=== PATIENT | female | born 1975 | race African-American/Black ===

== ENCOUNTER → 2018-04-19 | Outpatient (CLI) | payer OTHER ==
--- NOTE | 2018-04-19 17:14 | KCIC ---
History: Pain for 2 weeks. Swelling for one week. Comparison: None. Findings: AP, lateral, and oblique views of left ankle. No acute fracture or dislocation is identified. Lateral ankle soft tissue swelling is seen. Small Achilles tendon insertional and minimal plantar calcaneal enthesophytes are seen. AP, lateral, and oblique views of the left foot. No acute fracture or dislocation is identified. Moderate 1st MTP degeneration is present. Impression: 1. No acute osseous abnormality identified in the left ankle or left foot. 2. Lateral ankle soft tissue swelling. 3. 1st MTP degeneration. Electronically signed by: Nigel Acuna MD (04/19/2018 5:11 PM) [place] [id number]
== END | disposition home or self-care (01) ==
LOC: KCIC 14:37
PROVIDERS: ATTEND Internal Medicine
DX: M19.072 Primary osteoarthritis, left ankle and foot (principal); R22.42 Localized swelling, mass and lump, left lower limb
CPT/HCPCS: 73610; 73630

== ENCOUNTER → 2018-05-07 | Outpatient (CLI) | payer OTHER ==
--- NOTE | 2018-05-07 16:59 | RAD ---
Left leg venous Doppler study: Clinical indications: Left ankle swelling and pain. Findings: Duplex sonography (including murrell scale evaluation and color flow and waveform spectral analysis) of the proximal aspect of the greater saphenous vein and the proximal aspect of the profunda femoral vein and the entire length of the common femoral and superficial femoral and popliteal veins and the tibioperoneal trunk and the proximal aspect of the posterior tibial and peroneal veins of the left leg was performed. Normal compressibility, augmentation of color Doppler flow after calf compression, and respiratory variation of Doppler flow is seen. Thus, there are no sonographic findings of deep venous thrombosis within these veins. Impression: There are no sonographic findings of deep venous thrombosis within the veins discussed above of the left lower extremity. Electronically signed by: Carlos Alfred MD (05/07/2018 4:55 PM) [id number]
== END | disposition home or self-care (01) ==
LOC: US 14:01
PROVIDERS: ATTEND Internal Medicine
DX: R22.42 Localized swelling, mass and lump, left lower limb (principal); M79.605 Pain in left leg
CPT/HCPCS: 93971

== ENCOUNTER 2018-07-03 08:26 | Day surgery (SDC) | payer OTHER ==
[~2018-07-03] VITALS: Ht 182.9 cm; Wt 133.4 kg
[~2018-07-03 08:26] MED LIST: HYDROmorphone 2 MG/ML VIAL IV PRN; IV RINGERS,LACTATED 1000ML 1,000 ML IV SCH; LIDOCAINE 1% PF 2 ML VIAL. ID PRN; MORPHINE SULFATE 2 MG/ML VIAL. IV PRN; ONDANSETRON PF 4 MG/2 ML VIAL. IV PRN; PROCHLORPERAZINE 10 MG/2 ML VIAL. IV PRN; fentaNYL PF VIAL 100 MCG/2 ML VIAL IV PRN
[2018-07-03] MEDS ORDERED: PROPOFOL 20 ML IV ONE (08:40)
[2018-07-03] MEDS ORDERED: DEXAMETHASONE SOD PHOS 20 MG/5 ML VIAL. ONE (08:40)
[2018-07-03] MEDS ORDERED: LIDOCAINE 2% PF 5 ML VIAL. ONE (08:40)
[2018-07-03] MEDS ORDERED: FAMOTIDINE 20 MG/2 ML VIAL ONE (08:40)
[2018-07-03] MEDS ORDERED: ONDANSETRON PF 4 MG/2 ML VIAL. ONE (08:40)
[2018-07-03] MEDS ORDERED: fentaNYL PF VIAL 100 MCG/2 ML VIAL ONE ×2 (08:41→10:21)
[2018-07-03] MEDS ORDERED: ROCURONIUM 50 MG/5 ML VIAL. ONE (08:41)
[2018-07-03] MEDS ORDERED: MIDAZOLAM HCL/PF 2 MG/2 ML VIAL. ONE (08:41)
[2018-07-03 08:45] LABS: U PREG PATIENT NEGATIVE (NEG)
[2018-07-03] MEDS ORDERED: AMLO5TAB10 PO (08:45)
[2018-07-03] MEDS ORDERED: FERR325T14 PO (08:45)
[2018-07-03] MEDS ORDERED: TYLENOL ARTHRITIS (08:46)
[2018-07-03] MEDS ORDERED: LABE100T5 PO (08:46)
[2018-07-03 09:08] LABS: BASO % 1 % (0-3); EOS # 0.1 x10^3/uL (0.0-0.7); EOS % 2 % (0-3); HEMATOCRIT 33.6 % (36.0-47.0); LYMPH # 1.5 x10^3/uL (1.0-4.8); LYMPH % 23 % (24-48); MEAN CORPUSCULAR HEMOGLOBIN 26 pg (25-35); MEAN CORPUSCULAR HGB CONC 33 g/dL (31-37); MEAN CORPUSCULAR VOLUME 79 fL (79-100); MONO # 0.3 x10^3/uL (0.0-1.1); MONO % 5 % (0-9); NEUT # 4.4 x10^3uL (1.8-7.7); NEUT % 70 % (31-73); PLATELET COUNT 294 x10^3/uL (140-400); RED BLOOD COUNT 4.27 x10^6/uL (3.50-5.40); RED CELL DISTRIBUTION WIDTH 15.2 % (11.5-14.5); WHITE BLOOD COUNT 6.3 x10^3/uL (4.0-11.0)
[2018-07-03] MEDS ORDERED: miSOPROStol 200 MCG TABLET ONE (09:45)
[2018-07-03] MEDS ORDERED: OXYTOCIN 10 UNIT/ML VIAL. ONE (09:45)
--- NOTE | 2018-07-03 10:03 | PDOC ---
GENERAL General: 43 yrs old lady with history of Excessive uterine bleeding and Pelvic pain.Pt scheduled for D&C , Diagnostic Laparoscopy VITAL SIGNS Vital Signs: Vital Signs Date Time Temp Pulse Resp B/P (MAP) Pulse Ox O2 Delivery O2 Flow Rate FiO2 07/03/18 09:02 97.1 79 18 144/91 99 Room Air 97.1 ALLERGIES Allergies: Allergies Coded Allergies Type Severity Reaction Last Updated Verified No Known Drug Allergies 07/01/18 No MEDS Medications: Current Medications Medications (Trade) Dose Ordered Sig/Andrew Start Time Stop Time Status Last Admin Dose Admin Cefazolin Sodium/ Dextrose 50 ml @ 100 mls/hr 1X PREOP PRN 07/03/18 06:00 07/03/18 18:00 Dexamethasone Sodium Phosphate (Decadron) 20 mg STK-MED ONCE 07/03/18 08:40 07/03/18 08:42 DC Famotidine (Pepcid Vial) 20 mg STK-MED ONCE 07/03/18 08:40 07/03/18 08:42 DC Fentanyl Citrate (Fentanyl 2ml Vial) 100 mcg STK-MED ONCE 07/03/18 08:41 07/03/18 08:44 DC Hydromorphone HCl (Dilaudid) 0.5 mg PRN Q10MIN PRN 07/03/18 07:00 07/04/18 06:59 Lidocaine HCl (Lidocaine Pf 2% Vial) 5 ml STK-MED ONCE 07/03/18 08:40 07/03/18 08:42 DC Lidocaine HCl (Xylocaine-Mpf 1% 2ml Vial) 2 ml PRN 1X PRN 07/03/18 07:00 07/04/18 06:59 Midazolam HCl (Versed) 2 mg STK-MED ONCE 07/03/18 08:41 07/03/18 08:43 DC Misoprostol (Cytotec 200mcg Tab) 200 mcg STK-MED ONCE 07/03/18 09:45 07/03/18 09:47 DC Morphine Sulfate (Morphine Sulfate) 1 mg PRN Q10MIN PRN 07/03/18 07:00 07/04/18 06:59 Ondansetron HCl (Zofran) 4 mg STK-MED ONCE 07/03/18 08:40 07/03/18 08:42 DC Oxytocin (Pitocin) 10 unit STK-MED ONCE 07/03/18 09:45 07/03/18 09:47 DC Prochlorperazine Edisylate (Compazine) 5 mg PACU PRN PRN 07/03/18 07:00 07/04/18 06:59 Propofol 20 ml @ As Directed STK-MED ONCE 07/03/18 08:40 07/03/18 08:42 DC Ringer's Solution 1,000 ml @ 30 mls/hr Q24H 07/03/18 07:00 07/03/18 18:59 07/03/18 09:02 30 MLS/HR Rocuronium [place] (Zemuron) 50 mg STK-MED ONCE 07/03/18 08:41 07/03/18 08:42 DC LAB Lab: Laboratory Tests Test 07/03/18 08:35 07/03/18 08:55 Urine Test Negative (NEG) White Blood Count 6.3 x10^3/uL (4.0-11.0) Red Blood Count 4.27 x10^6/uL (3.50-5.40) Hemoglobin 11.0 g/dL (12.0-15.5) Hematocrit 33.6 % (36.0-47.0) Mean Corpuscular Volume 79 fL (79-100) Mean Corpuscular Hemoglobin 26 pg (25-35) Mean Corpuscular Hemoglobin Concent 33 g/dL (31-37) Red Cell Distribution Width 15.2 % (11.5-14.5) Platelet Count 294 x10^3/uL (140-400) Neutrophils (%) (Auto) 70 % (31-73) Lymphocytes (%) (Auto) 23 % (24-48) Monocytes (%) (Auto) 5 % (0-9) Eosinophils (%) (Auto) 2 % (0-3) Basophils (%) (Auto) 1 % (0-3) Neutrophils # (Auto) 4.4 x10^3uL (1.8-7.7) Lymphocytes # (Auto) 1.5 x10^3/uL (1.0-4.8) Monocytes # (Auto) 0.3 x10^3/uL (0.0-1.1) Eosinophils # (Auto) 0.1 x10^3/uL (0.0-0.7) Basophils # (Auto) 0.0 x10^3/uL (0.0-0.2) ASSESSMENT & PLAN A&P Under GA D&C Diagnostic Laparoscopy done. JULIA SHAH MD Jul 03, 2018 10:03
[2018-07-03] MEDS ORDERED: SEVOFLURANE 61 TO 120 MINUTES. IH ONE (10:26)
[2018-07-03] MEDS ORDERED: GLYCOPYRROLATE 1 MG/5 ML VIAL. ONE (10:29)
--- NOTE | 2018-07-03 11:08 | PDOC ---
VITAL SIGNS Vital Signs: Vital Signs Date Time Temp Pulse Resp B/P (MAP) Pulse Ox O2 Delivery O2 Flow Rate FiO2 07/03/18 09:02 97.1 79 18 144/91 99 Room Air 97.1 ALLERGIES Allergies: Allergies Coded Allergies Type Severity Reaction Last Updated Verified No Known Drug Allergies 07/01/18 No MEDS Medications: Current Medications Medications (Trade) Dose Ordered Sig/Andrew Start Time Stop Time Status Last Admin Dose Admin Cefazolin Sodium/ Dextrose 50 ml @ 100 mls/hr 1X PREOP PRN 07/03/18 06:00 07/03/18 18:00 07/03/18 10:05 100 MLS/HR Dexamethasone Sodium Phosphate (Decadron) 20 mg STK-MED ONCE 07/03/18 08:40 07/03/18 08:42 DC Famotidine (Pepcid Vial) 20 mg STK-MED ONCE 07/03/18 08:40 07/03/18 08:42 DC Fentanyl Citrate (Fentanyl 2ml Vial) 100 mcg STK-MED ONCE 07/03/18 10:21 07/03/18 10:23 DC Glycopyrrolate (Robinul) 1 mg STK-MED ONCE 07/03/18 10:29 07/03/18 10:32 DC Hydromorphone HCl (Dilaudid) 0.5 mg PRN Q10MIN PRN 07/03/18 07:00 07/04/18 06:59 Lidocaine HCl (Lidocaine Pf 2% Vial) 5 ml STK-MED ONCE 07/03/18 08:40 07/03/18 08:42 DC Lidocaine HCl (Xylocaine-Mpf 1% 2ml Vial) 2 ml PRN 1X PRN 07/03/18 07:00 07/04/18 06:59 Midazolam HCl (Versed) 2 mg STK-MED ONCE 07/03/18 08:41 07/03/18 08:43 DC Misoprostol (Cytotec 200mcg Tab) 200 mcg STK-MED ONCE 07/03/18 09:45 07/03/18 09:47 DC Morphine Sulfate (Morphine Sulfate) 1 mg PRN Q10MIN PRN 07/03/18 07:00 07/04/18 06:59 Ondansetron HCl (Zofran) 4 mg STK-MED ONCE 07/03/18 08:40 07/03/18 08:42 DC Oxytocin (Pitocin) 10 unit STK-MED ONCE 07/03/18 09:45 07/03/18 09:47 DC Prochlorperazine Edisylate (Compazine) 5 mg PACU PRN PRN 07/03/18 07:00 07/04/18 06:59 Propofol 20 ml @ As Directed STK-MED ONCE 07/03/18 08:40 07/03/18 08:42 DC Ringer's Solution 1,000 ml @ 30 mls/hr Q24H 07/03/18 07:00 07/03/18 18:59 07/03/18 09:02 30 MLS/HR Rocuronium [place] (Zemuron) 50 mg STK-MED ONCE 07/03/18 08:41 07/03/18 08:42 DC Sevoflurane (Ultane) 60 ml STK-MED ONCE 07/03/18 10:26 07/03/18 10:29 DC LAB Lab: Laboratory Tests Test 07/03/18 08:35 07/03/18 08:55 Urine Test Negative (NEG) White Blood Count 6.3 x10^3/uL (4.0-11.0) Red Blood Count 4.27 x10^6/uL (3.50-5.40) Hemoglobin 11.0 g/dL (12.0-15.5) Hematocrit 33.6 % (36.0-47.0) Mean Corpuscular Volume 79 fL (79-100) Mean Corpuscular Hemoglobin 26 pg (25-35) Mean Corpuscular Hemoglobin Concent 33 g/dL (31-37) Red Cell Distribution Width 15.2 % (11.5-14.5) Platelet Count 294 x10^3/uL (140-400) Neutrophils (%) (Auto) 70 % (31-73) Lymphocytes (%) (Auto) 23 % (24-48) Monocytes (%) (Auto) 5 % (0-9) Eosinophils (%) (Auto) 2 % (0-3) Basophils (%) (Auto) 1 % (0-3) Neutrophils # (Auto) 4.4 x10^3uL (1.8-7.7) Lymphocytes # (Auto) 1.5 x10^3/uL (1.0-4.8) Monocytes # (Auto) 0.3 x10^3/uL (0.0-1.1) Eosinophils # (Auto) 0.1 x10^3/uL (0.0-0.7) Basophils # (Auto) 0.0 x10^3/uL (0.0-0.2) ASSESSMENT & PLAN A&P Under GA D&C Diagnostic Laparoscopy done. EBL --10cc. JULIA SHAH MD Jul 03, 2018 11:07
--- NOTE | 2018-07-03 11:14 | OP ---
DATE OF SURGERY: 07/03/2018 PREOPERATIVE DIAGNOSES: 1. Menorrhagia. 2. Dysfunctional uterine bleeding. 3. Pelvic pain. POSTOPERATIVE DIAGNOSES: 1. Menorrhagia. 2. Dysfunctional uterine bleeding. 3. Pelvic pain. 4. Fibroid uterus. OPERATION PERFORMED: D and C, diagnostic laparoscopy. DESCRIPTION OF PROCEDURE: The patient was taken to the operating room. Under general anesthesia, she was placed in a dorsal lithotomy position. Perineum and lower abdomen was prepped and draped in the usual manner. Bladder was catheterized and a weighted-speculum inserted in the posterior vaginal wall. Anterior lip of the cervix held with a tenaculum. Cervix was dilated first. Uterine sound was used to measure the length of the uterine cavity, which appears to be about 9 cm and cervix was dilated first. Medium-sized curette was used to curet the endometrial cavity. All the curettings obtained were subjected for pathological examination. At the end of the curettage, uterine cannula was inserted into the cervical canal and fixed to the tenaculum for manipulation of uterus during laparoscopic procedure. Bladder was catheterized before and a small subumbilical incision was made. Veress needle inserted. Peritoneal cavity distended with about 3 liters of carbon dioxide gas. The needle was removed. Laparoscopic trocar was passed in and the scope was used to visualize the pelvic structures, which reveals enlarged uterus with fibroids and both the tubes and ovaries appeared normal. No internal bleeding noted. No other pathology noted, but for the fibroids. The laparoscope was removed and the incision was closed with 3-0 Vicryl subcutaneous sutures, a Band-Aid was placed and the tenaculum and cannula was removed from the vaginal area. The patient was sent to the recovery room in good condition. No complications encountered at time of the procedure. Estimated blood loss about 10 mL. Postoperative condition was stable. She will be followed in the office in 2 weeks for further postoperative care and treatment. JULIA SHAH MD DR: JERRI/edith JOB#: [id number] / [id number]
[2018-07-03] MEDS ORDERED: OXYC1TAB15 PO (11:15)
[2018-07-03] MEDS ORDERED: oxyCODONE/APAP 5/325 1 TAB TABLET PO ONE (11:30)
[2018-07-03] MEDS: fentaNYL PF VIAL 100 MCG/2 ML VIAL IV PRN ×2 (11:45→12:07)
[2018-07-03 12:35] VITALS: BP 156/92
--- NOTE | 2018-07-05 11:15 | PATHOLOGY ---
[facility] [place] Accession Number: [id number] . 01 Material submitted: . PRODUCTS OF CONCEPTION . 01 Clinical history: . Spontaneous . 02 Diagnosis: Uterine contents, D and C: - Segments of secretory endometrium and few segments of endocervical tissue identified. (JPM:mitchell; 07/05/2018) QMS/07/05/2018 . 02 Comment: No chorionic villi are identified. . 02 Electronically signed: . Shemar Drummond MD, Pathologist NPI- [id number] . 01 Gross description: . Received in formalin labeled "Nadiya Dunham, products of conception," is a 1.4 x 1.3 x 0.2 cm aggregate of aguirre-brown soft tissue fragments. tissue is not identified grossly. Vesicular structures are not identified grossly. The specimen is submitted entirely in cassette A1. ([facility]; 07/04/2018) XDC/XDC . 02 Pathologist provided ICD-10: O03.9 . 02 CPT . 601650 Specimen Comment: A courtesy copy of this report has been sent to Specimen Comment: [phone], . Specimen Comment: Report sent to / DR ASHLEY Specimen Comment: A duplicate report has been generated due to demographic updates. Performed at: 01 [facility] [address], [place] [id number] MD Chris Lopez MD Phone: [phone] Performed at: 02 [facility] [address], [place] [id number] MD Shemar Drummond MD Phone: [phone]
== END 2018-07-03 13:33 | disposition home or self-care (01) ==
LOC: SURG 08:26
PROVIDERS: ATTEND Obstetrics & Gynecology
DX: D25.9 Leiomyoma of uterus, unspecified (principal)
CPT/HCPCS: 36415; 49320; 58120; 81025; 85025; 88305; A7015; J0696; J1100; J2001; J2250; J2405; J2704; J3010; J3490; J7120; J2590

== ENCOUNTER → 2018-10-03 | Outpatient (CLI) | payer OTHER ==
[~2018-10-03] MED LIST changes: +AMLO5TAB10 PO; +FERR325T14 PO; -HYDROmorphone 2 MG/ML VIAL IV PRN; -IV RINGERS,LACTATED 1000ML 1,000 ML IV SCH; +LABE100T5 PO; -LIDOCAINE 1% PF 2 ML VIAL. ID PRN; -MORPHINE SULFATE 2 MG/ML VIAL. IV PRN; -ONDANSETRON PF 4 MG/2 ML VIAL. IV PRN; +OXYC1TAB15 PO; -PROCHLORPERAZINE 10 MG/2 ML VIAL. IV PRN; +TYLENOL ARTHRITIS; -fentaNYL PF VIAL 100 MCG/2 ML VIAL IV PRN
--- NOTE | 2018-10-03 15:31 | KCIC ---
EXAM: Paranasal sinuses, 4 views. HISTORY: Sinusitis. COMPARISON: None. FINDINGS: 4 views of the paranasal sinuses are obtained. There is no sinus opacification or air-fluid level. There is no significant nasal septal deviation. IMPRESSION: No convincing radiographic evidence of sinusitis. Electronically signed by: Abimbola Robledo MD (10/03/2018 3:28 PM) [id number]
== END | disposition home or self-care (01) ==
LOC: KCIC 14:15
PROVIDERS: ATTEND Internal Medicine
DX: J32.8 Other chronic sinusitis (principal)
CPT/HCPCS: 70220

== ENCOUNTER → 2018-10-07 | Outpatient (CLI) | payer OTHER ==
--- NOTE | 2018-10-07 16:45 | KCIC ---
Pelvic ultrasound HISTORY: Dysfunctional uterine bleeding. Transabdominal scan: Uterus measures 8.8 x 5.7 x 6.3 cm. Ovaries are not well seen. Endovaginal scan: Uterus measures 9.6 x 6.3 x 5.5 cm. Endometrium measures 17 mm and homogeneous. There is a lesion adjacent to the uterine fundus, most likely a pedunculated fibroid measuring 2.0 x 2.6 x 1.9 cm. Right ovary measures 4 cm, contains a heterogeneous 12 mm irregular nodule likely a crenulated or collapsing follicle. Positive blood supply the right ovary. Left ovary measures 3.2 cm with intact blood supply. Difficult to document blood supply given ovarian location but appears to be intact. No free fluid is seen. IMPRESSION: 1. Borderline thickened endometrium, may just be due to the menstrual phase. Endometrium appears homogeneous. 2. Soft tissue mass adjacent to the fundus, most likely a pedunculated fibroid. 3. Irregular lesion of right ovary, most likely a crenulated or collapsing cyst. Electronically signed by: Nigel Thibodeaux MD (10/07/2018 4:42 PM) [id number]
== END | disposition home or self-care (01) ==
LOC: KCIC US 14:57
PROVIDERS: ATTEND Obstetrics & Gynecology
DX: N85.9 Noninflammatory disorder of uterus, unspecified (principal); N83.9 Noninflammatory disorder of ovary, fallopian tube and broad ligament, unspecified
CPT/HCPCS: 76830; 76856